=== PATIENT | male | born 1985 | race African-American/Black ===

== ENCOUNTER 2018-01-30 22:09 | Emergency (ER) | payer SELFPAY ==
[2018-01-30 23:07] VITALS: BP 117/73
[2018-01-30] MEDS ORDERED: LIDOCAINE 1% INJ-PF (10 MG/ML) 30 ML SDV INJ ONE (23:51)
[2018-01-30] MEDS ORDERED: CEFAZOLIN 1 GM/D5W RTU 1 GM/50 ML RTUPB IV ONE (23:56)
--- NOTE | 2018-01-31 00:25 | ER Document Report ---
ED Wound - General Mode of Arrival: Ambulatory Information source: Patient TRAVEL OUTSIDE OF THE [place] IN LAST 30 DAYS: No <JOHN GIBBS - Last Filed: 01/31/18 00:09> <APRYL ALMANZAR - Last Filed: 01/31/18 01:20> - General Chief Complaint: Laceration Stated Complaint: FINGER LACERATION Time Seen by Provider: 01/30/18 23:32 Notes: 33-year-old male who presents to emergency department today with complaints of a laceration to his right thumb. Patient is right-hand dominant. Patient states he was lifting a lawnmower in his garage and his hand slid on the under part of mower and the metal sliced him. Patient states he had a tetanus shot one year ago. (JOHN GIBBS) - Related Data Allergies/Adverse Reactions: No Known Allergies Allergy (Unverified 01/31/18 00:46) Past Medical History - General Information source: Patient - Social History Smoking Status: Current Every Day Smoker Cigarette use (# per day): Yes Frequency of alcohol use: None Drug Abuse: None Lives with: Family Family History: Reviewed & Not Pertinent <JOHN GIBBS - Last Filed: 01/31/18 00:09> Review of Systems - Review of Systems Constitutional: No symptoms reported EENT: No symptoms reported Cardiovascular: No symptoms reported Respiratory: No symptoms reported Gastrointestinal: No symptoms reported Genitourinary: No symptoms reported Male Genitourinary: No symptoms reported Musculoskeletal: No symptoms reported Skin: See HPI, Other - wound to right hand Hematologic/Lymphatic: No symptoms reported Neurological/Psychological: No symptoms reported -: Yes All other systems reviewed and negative <JOHN GIBBS - Last Filed: 01/31/18 00:09> Physical Exam <JOHN GIBBS - Last Filed: 01/31/18 00:09> <APRYL ALMANZAR - Last Filed: 01/31/18 01:20> - Vital signs Vitals: Temp Pulse Resp BP Pulse Ox 99.3 F 87 18 117/73 99 01/30/18 23:06 01/30/18 23:06 01/30/18 23:06 01/30/18 23:06 01/30/18 23:06 - Notes Notes: Physical Exam: General: Alert, appears well. HEENT: Normocephalic. Atraumatic. PERRL. Extraocular movements intact. Oropharynx clear. Neck: Supple. Non-tender. Respiratory: No respiratory distress. Clear and equal breath sounds bilaterally. Cardiovascular: Regular rate and rhythm. Abdominal: Normal Inspection. Non-tender. No distension. Normal Bowel Sounds. Back: Non-tender. No deformity or step off. Extremities: Moves all four extremities. Upper extremities: Normal inspection. Normal ROM. Lower extremities: Normal inspection. No edema. Normal ROM. Neurological: Normal cognition. AAOx4. Normal speech. Psychological: Normal affect. Normal Mood. Skin: Warm. Dry. Normal color. 2cm laceration in the 1st interdigital space on the right hand. (JOHN GIBBS) Course <JOHN GIBBS - Last Filed: 01/31/18 00:09> <APRYL ALMANZAR - Last Filed: 01/31/18 01:20> - Re-evaluation Re-evalutation: 01/31/18 01:00 Patient is a 33-year-old male who comes in after injuring his dominant right hand on a lawnmower edge. Laceration to web space that has been repaired. Please see procedure note. Patient's tetanus is up-to-date, as he received it last year. He has been given a dose of Ancef will be discharged home with Keflex due to the nature of the injury. No other injuries or concerns. Patient will need a work note. He is to follow-up in 10-14 days for suture removal and sooner if he has any further concerns. Understands agrees with plan. Grateful for care. (APRYL ALMANZAR) - Vital Signs Vital signs: Temp Pulse Resp BP Pulse Ox 99.3 F 87 18 117/73 99 01/30/18 23:06 01/30/18 23:06 01/30/18 23:06 01/30/18 23:06 01/30/18 23:06 Procedures - Laceration/Wound Repair Right Hand Wound length (cm): 2 Wound's Depth, Shape: Linear Laceration pre-procedure: Sterile PPE donned, Sterile drapes applied Anesthetic type: 1% Lidocaine Wound explored: Clean, No foreign body removed Irrigated w/ Saline (mLs): 500 Wound Repaired With: Sutures Suture Size/Type: 3:0, Nylon Number of Sutures: 4 Layer Closure?: No Post-procedure wound care: Sterile dressing applied Post-procedure NV exam normal: Yes Complications: No <APRYL ALMANZAR - Last Filed: 01/31/18 01:20> Discharge <JOHN GIBBS - Last Filed: 01/31/18 00:09> <APRYL ALMANZAR - Last Filed: 01/31/18 01:20> - Discharge Clinical Impression: Hand laceration Qualifiers: Encounter type: initial encounter Foreign body presence: without foreign body Laterality: right Qualified Code(s): S61.411A - Laceration without foreign body of right hand, initial encounter Condition: Stable Disposition: HOME, SELF-CARE Instructions: Hand Laceration ([facility]) Additional Instructions: Please return for suture removal in 10-14 days. Please return sooner if you have any concerns such as redness, discharge, or pain. Prescriptions: Cephalexin Monohydrate [Keflex 500 mg Capsule] 500 mg PO Q6H 10 Days capsule Forms: Return to Work Scribe Attestation: 01/31/18 01:20 I personally performed the services described in the documentation, reviewed and edited the documentation which was dictated to the scribe in my presence, and it accurately records my words and actions. (APRYL ALMANZAR)
== END 2018-01-31 01:30 | disposition home or self-care (01) ==
LOC: ER 22:09
DX: S61.411A Laceration without foreign body of right hand, initial encounter (principal); W45.8XXA Other foreign body or object entering through skin, initial encounter; Y93.89 Activity, other specified; F17.210 Nicotine dependence, cigarettes, uncomplicated
CPT/HCPCS: 99283; 96365; 12001; J0690; J3490